=== PATIENT | female | born 1950 | race Caucasian/White ===

== ENCOUNTER → 2023-11-05 06:40 | Outpatient (REF) | payer MEDICARE, OTHER, SELFPAY ==
[2023-11-05 07:55] LABS: ALT (SGPT) 26 U/L (0-35); AST (SGOT) 26 U/L (14-36); Albumin 4.5 g/dl (3.5-5.0); Alkaline Phosphatase 72 U/L (38-126); Blood Urea Nitrogen 15 mg/dl (7-17); Calcium 9.5 mg/dl (8.4-10.2); Carbon Dioxide 26 mmol/L (22-30); Chloride 102 mmol/L (98-107); Glucose 111 mg/dl (70-99); HDL Cholesterol 48 mg/dl; LDL Cholesterol, Calculated 87 mg/dl; Sodium 139 mmol/L (135-145); Total Bilirubin 0.7 mg/dl (0.2-1.3); Total Cholesterol 184 mg/dl (50-199); Total Protein 7.3 g/dl (6.3-8.2); Triglyceride 246 mg/dl (10-149); Very Low Density Lipoprotein 49 mg/dl (0-30); eGFR > 60.00
[2023-11-05 08:01] LABS: Potassium 4.5 mmol/L (3.5-5.1)
[2023-11-05 08:10] LABS: Free T4 0.75 ng/dl (0.78-2.19)
[2023-11-05 08:24] LABS: TSH 6.38 uIU/ml (0.47-4.68)
== END ==
LOC: REG 06:40
PROVIDERS: ATTENDING PHYSICIAN Family Medicine
DX: E78.2 Mixed hyperlipidemia (principal); R79.89 Other specified abnormal findings of blood chemistry; Z79.899 Other long term (current) drug therapy
CPT/HCPCS: 36415; 80053; 80061; 84439; 84443

== ENCOUNTER → 2023-11-11 16:30 | Outpatient (REF) | payer MEDICARE, OTHER, SELFPAY ==
[2023-11-11 17:29] LABS: % Basophils 0.4 % (0-2); % Eosinophils 1.6 % (0-6); % Immature Granulocytes 0.3 % (0-0.5); % Lymphocytes 26.4 % (20.5-51.1); % Monocytes 7.8 % (1.7-9.3); % Neutrophils 63.5 % (42.2-75.2); Absolute Basophils 0.1 10^3/uL (0-0.2); Absolute Eosinophils 0.2 10^3/uL (0-0.7); Absolute Lymphocytes 3.1 10^3/uL (1.2-3.4); Absolute Monocytes 0.9 10^3/uL (0.1-0.6); Absolute Neutrophils 7.4 10^3/uL (1.4-6.5); Hematocrit 46.1 % (37.0-47.0); Hemoglobin 15.4 g/dL (12.0-16.0); Mean Corp Hgb Conc. 33.4 g/dL (33.0-37.0); Mean Corpuscular Hgb 30.7 pg (27.0-31.0); Mean Corpuscular Volume 91.8 fL (81.0-99.0); Nucleated Red Blood Cells % 0 %; Platelet Count 326 10^3/uL (130-400); Red Blood Cell Count 5.02 10^6/uL (4.20-5.40); Red Cell Dist. Width 13.4 % (11.5-14.5); White Blood Cell Count 11.6 10^3/uL (4.8-10.8)
== END ==
LOC: OLAB 16:30
PROVIDERS: ATTENDING PHYSICIAN Family Medicine
DX: R79.89 Other specified abnormal findings of blood chemistry (principal)
CPT/HCPCS: 36415; 85025

== ENCOUNTER → 2024-01-11 08:28 | Outpatient (REF) | payer MEDICARE, OTHER, SELFPAY | LOC: RAD 08:28 | PROVIDERS: ATTENDING PHYSICIAN Internal Medicine Endocrinology, Diabetes & Metabolism | DX: M81.0 Age-related osteoporosis without current pathological fracture (principal); E34.9 Endocrine disorder, unspecified; E83.52 Hypercalcemia; E55.9 Vitamin D deficiency, unspecified | CPT/HCPCS: 76536; 77080; 77081 ==

== ENCOUNTER → 2024-01-28 15:05 | Outpatient (REF) | payer MEDICARE, OTHER, SELFPAY ==
[2024-01-28 15:46] LABS: Ionized Calcium 1.13 mMOL/L (1.15-1.33)
[2024-01-28 16:07] LABS: ALT (SGPT) 23 U/L (0-35); AST (SGOT) 21 U/L (14-36); Albumin 4.6 g/dl (3.5-5.0); Alkaline Phosphatase 67 U/L (38-126); Blood Urea Nitrogen 15 mg/dl (7-17); Calcium 9.9 mg/dl (8.4-10.2); Carbon Dioxide 23 mmol/L (22-30); Chloride 103 mmol/L (98-107); Glucose 103 mg/dl (70-99); Potassium 4.2 mmol/L (3.5-5.1); Sodium 140 mmol/L (135-145); Total Bilirubin 0.6 mg/dl (0.2-1.3); Total Protein 7.4 g/dl (6.3-8.2); eGFR > 60.00
[2024-01-29 10:27] LABS: Intact PTH 35.9 pg/ml (13.6-85.8)
== END ==
LOC: REG 15:05
PROVIDERS: ATTENDING PHYSICIAN Internal Medicine Endocrinology, Diabetes & Metabolism; FAMILY PHYSICIAN Family Medicine; REFERRING PHYSICIAN Specialist
DX: E55.9 Vitamin D deficiency, unspecified (principal); E83.52 Hypercalcemia; E34.9 Endocrine disorder, unspecified
CPT/HCPCS: 36415; 80053; 82306; 82330; 83970

== ENCOUNTER 2024-03-07 14:11 | Outpatient (RCR) | payer MEDICARE, OTHER, SELFPAY ==
[2024-03-07] MEDS: RECLAST 100 IV (14:50)
[2024-03-07 15:01] VITALS: BP 146/51
== END 2024-03-08 09:05 | disposition home or self-care (01) ==
LOC: OID 14:11
PROVIDERS: ATTENDING PHYSICIAN Internal Medicine Endocrinology, Diabetes & Metabolism; FAMILY PHYSICIAN Family Medicine
DX: M81.0 Age-related osteoporosis without current pathological fracture (principal)
CPT/HCPCS: 96365; J3489

== ENCOUNTER → 2025-01-09 06:58 | Outpatient (REF) | payer MEDICARE, OTHER, SELFPAY ==
[2025-01-09 07:35] LABS: Ionized Calcium 1.11 mMOL/L (1.15-1.33)
[2025-01-09 08:11] LABS: Albumin 4.3 g/dl (3.5-5.0); Chloride 108 mmol/L (98-107); Potassium 4.5 mmol/L (3.5-5.1); Sodium 140 mmol/L (135-145)
[2025-01-09 08:22] LABS: ALT (SGPT) 22 U/L (0-35); AST (SGOT) 22 U/L (14-36); Alkaline Phosphatase 57 U/L (38-126); Blood Urea Nitrogen 12 mg/dl (7-17); Carbon Dioxide 21 mmol/L (22-30); Glucose 106 mg/dl (70-99); Total Bilirubin 0.6 mg/dl (0.2-1.3); Vitamin D, 25-OH*** 69.7 ng/mL (30-80); eGFR > 60.00
[2025-01-09 10:11] LABS: Intact PTH 63.9 pg/ml (13.6-85.8)
== END ==
LOC: REG 06:58
PROVIDERS: ATTENDING PHYSICIAN Internal Medicine Endocrinology, Diabetes & Metabolism; FAMILY PHYSICIAN Family Medicine
DX: M81.0 Age-related osteoporosis without current pathological fracture (principal); E55.9 Vitamin D deficiency, unspecified
CPT/HCPCS: 36415; 80053; 82306; 82330; 83970

== ENCOUNTER → 2025-03-23 11:01 | Outpatient (REF) | payer MEDICARE, OTHER, SELFPAY | LOC: HWRAD 11:01 | PROVIDERS: ATTENDING PHYSICIAN Specialist; FAMILY PHYSICIAN Family Medicine | DX: N20.0 Calculus of kidney (principal) | CPT/HCPCS: 76775 ==